=== PATIENT | male | born 1945 | race Caucasian/White ===

== ENCOUNTER 2017-08-17 15:27 | Inpatient (IN) | payer OTHER ==
[~2017-08-17] VITALS: Ht 175.3 cm; Wt 112.6 kg
--- NOTE | ~2017-08-17 | HC ---
[facility] [place] [address] CONSULTATION Name: REVA MOHAMUD Room #: [facility]- ADM IN M.R.#: [id number] Admission: 08/19/17 Attend Phys: Mayte Braxton MD, Discharge: Date of : 45 Report #: [id number] THIS REPORT FOR: //name// CC: FAM unknown Mayte Braxton REASON FOR CONSULTATION: I was asked to evaluate concerning sepsis post-abdominal wall reconstruction. HISTORY OF PRESENT ILLNESS: The patient is a 72-year-old with underlying history of diabetes, obesity, hypertension, recurrent ventral hernia who underwent a complex abdominal surgery on 08/19/2017. He underwent extensive lysis of adhesions, debridement of ischemic abdominal wall fascia and hernia sac with explantation of synthetic mesh fragments and permanent suture. Complex wall reconstruction with open repair of multiple incarcerated recurrent incisional ventral hernias with mesh with bilateral component separation of the abdominal wall and adjacent tissue transfer closure of the anterior abdominal wall tissues. Postoperatively, he developed respiratory failure and is on BiPAP. He has had no fever or chills. NG tube remains in place. Urine output has been fair, now about 40 mL an hour. I gave Lasix initially and now is receiving some fluid resuscitation. His pain has been under fair control. He does have an epidural pain pump, this currently is turned off. He has had no substernal chest pain or pleuritic chest pain. He has been seen by family practice and Pulmonary Medicine. He is now in the Intensive Care Unit. ALLERGIES: None known. MEDICATIONS: As noted on his SEP. He has been given cefazolin at the time of surgery, then ceftriaxone, Levaquin, now vancomycin, Levaquin and Zosyn. PAST MEDICAL HISTORY: Ventral hernia repair, diabetes, hypertension, obesity, hyperlipidemia. FAMILY HISTORY: Noncontributory. SOCIAL HISTORY: Past smoker, no significant alcohol intake. REVIEW OF SYSTEMS: As noted above with no rash. He has a right upper extremity PICC in place, NG tube in place. Indwelling Oglesby catheter. PHYSICAL EXAMINATION: VITAL SIGNS: Temperature is 99.9, blood pressure 102/78, pulse 92,-50% BiPAP. GENERAL: He was alert and cooperative. Right upper extremity PICC was unremarkable. He had an epidural catheter in place. LUNGS: Decreased breath sounds bilaterally, no consolidation. HEART: Regular, without murmur. ABDOMEN: Distended. Midline incisional VAC in place. Two AUREA drains in the [address] [address] CONSULTATION Name: REVA MOHAMUD Room #: 245-P ADM IN .R.#: [id number] Admission: 08/19/17 Attend Phys: Mayte Braxton MD, Discharge: Date of : 45 Report #: [id number] lower abdomen with serosanguineous output. Diffusely tender across his abdomen. Indwelling Oglesby catheter. External genitalia, otherwise unremarkable. EXTREMITIES: Unremarkable. LABORATORY STUDIES: Sodium 139, potassium 4.1, bicarbonate 24, creatinine 2.2. Lactate 2.1. Procalcitonin 18. Liver function test normal. Hemoglobin 13.7, platelet count 210,000, white count 15.2. Urinalysis, few wbc's, moderate bacteria and yeast. Blood cultures, urine culture pending. Echocardiogram: EF 60-65%. Chest x-ray, vascular congestion. Ultrasound of lower extremities negative for DVT. IMPRESSION AND PLAN: Postoperative day #1 from extensive abdominal wall surgical repair for ventral hernia with now respiratory failure and possible sepsis. He has evidence of leukocytosis, elevated procalcitonin, acute renal failure. Source of his sepsis likely combination of abdominal and respiratory issues. We will await blood cultures and urine culture. Monitor his AUREA drain output and abdominal wall incision. We will give back some fluid as necessary to keep his urine output. We will check CVP and remain in the Intensive Care Unit with broad-spectrum antibiotic coverage. <ELECTRONICALLY SIGNED> By: Michael Corrales MD 08/23/17 0900 2132 2337 Michael Corrales MD /nt
--- NOTE | ~2017-08-17 | EKG ---
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 : 1945 Requested By: Mayte Braxton Order Number: [id number] MD: Mason Linn Measurements Intervals [place] Rate: 58 P: 43 IA: 148 QRS: -56 QRSD: 98 T: -71 QT: 492 QTc: 484 Interpretive Statements Sinus rhythm Probable left atrial enlargement Left anterior fascicular block Early R-wave progression Abnormal T, consider ischemia No previous ECG available for comparison Electronically Signed On 08-19-2017 8:43:35 VP PATIENT by Mason Linn [email or web address] <ELECTRONICALLY SIGNED> By: Mason Linn MD, [facility] 08/19/17 0843 0632 0632 Mason Linn MD, [facility] /EPI
--- NOTE | ~2017-08-17 | 2DMMODE ---
[facility] [address] [place] [address] 2 D/M-MODE ECHOCARDIOGRAM Name: REVA MOHAMUD Room #: 245-P ADM IN M.R.#: [id number] Admission: 08/19/17 Attend Phys: Mayte Braxton, Discharge: Date of : 45 Date of Service: 08/20/17 [facility] Report #: [id number] THIS REPORT FOR: //name// APPROVED REPORT Study performed: 08/20/2017 08:07:13 EXAM: Comprehensive 2D, Doppler, and color-flow Echocardiogram Patient Location: ICU Room #: formerly [facility] Status: routine BSA: 2.28 HR: 90 bpm BP: 183/108 mmHg Other Information Study Quality: Adequate Indications Diabetes Dyspnea Hypertension/HDD 2D Dimensions LVEF(%): 73.44 (>50%) IVSd: 13.99 (7-11mm) LVOT Diam: 22.95 (18-24mm) LVDd: 42.67 mm PWd: 14.54 (7-11mm) Ascending Ao: 33.71 (22-36mm) LVDs: 24.71 (25-40mm) Aortic Root: 34.10 mm Boyle's LVEF: 73.44 % Aortic Valve AoV Peak Gavin.: 1.08 m/s AO Peak Gr.: 4.64 mmHg LVOT Max P.09 mmHg LVOT Max V: 1.01 m/s KHALIDA Vmax: 3.88 cm2 Mitral Valve E/A Ratio: 0.4 MV Decel. Time: 339.52 ms MV E Max Gavin.: 0.41 m/s MV A Gavin.: 0.99 m/s MV PHT: 98.46 ms IVRT: 124.57 ms [facility] [address] [place] [address] 2 D/M-MODE ECHOCARDIOGRAM Name: REVA MOHAMUD Room #: 245-P [facility] IN ..#: [id number] Admission: 08/19/17 Attend Phys: Mayte Braxton, Discharge: Date of : 45 Date of Service: 08/20/17 [facility] Report #: [id number] Pulmonary Valve PV Peak Gavin.: 0.84 m/s PV Peak Gr.: 2.85 mmHg Pulmonary Vein P Vein S: 0.52 m/s P Vein A: 0.31 m/s P Vein D: 0.30 m/s P Vein A Dur.: 106.1 msec P Vein S/D Ratio: 1.73 Left Ventricle The left ventricle is normal size. Mild concentric left ventricular hypertrophy. The left ventricular systolic function is normal. The left ventricular ejection fraction is within the normal range. LVEF is 60-65%. Grade I - abnormal relaxation pattern. Right Ventricle The right ventricle is normal size. The right ventricular systolic function is normal. Atria The left atrium size is normal. The right atrium size is normal. Aortic Valve The aortic valve is normal in structure. No aortic regurgitation is present. There is no aortic valvular stenosis. Mitral Valve The mitral valve is normal in structure. There is no mitral valve regurgitation noted. No evidence of mitral valve stenosis. Tricuspid Valve The tricuspid valve is normal in structure. There is no tricuspid valve regurgitation noted. Pulmonic Valve The pulmonary valve is normal in structure. There is no pulmonic valvular regurgitation. Great Vessels The aortic root is normal in size. IVC is not well visualized. Pericardium Trace pericardial effusion. [facility] [address] [address] 2 D/M-MODE ECHOCARDIOGRAM Name: REVA MOHAMUD Room #: 245-P ADM IN M.R.#: [id number] Admission: 08/19/17 Attend Phys: Mayte Braxton, Discharge: Date of : 45 Date of Service: 08/20/17 [facility] Report #: [id number] <Conclusion> The left ventricle is normal size. Mild concentric left ventricular hypertrophy. LVEF is 60-65%. Grade I - abnormal relaxation pattern. The right ventricle is normal size. The left atrium size is normal. The aortic valve is normal in structure. There is no mitral valve regurgitation noted. There is no tricuspid valve regurgitation noted. The aortic root is normal in size. Trace pericardial effusion. <ELECTRONICALLY SIGNED> By: Stephen Sinclair MD, FACC 08/20/17 1038 1038 1038 Stephen Sinclair MD, FAC /INF
--- NOTE | ~2017-08-17 | S ---
[facility] [place] [address] SURGICAL PATH RPT PROCEDURE Name: EFE MOHAMUD Room #: 245-P ADM IN M.R.#: [id number] Admission: 08/19/17 Date of : 45 Discharge: Report #: [id number] Path Case #: [id number] PATHOLOGY REPORT COLLECTION DATE: 08/19/2017 RECEIVED DATE: 08/19/2017 SUBMITTING PHYS: Dr. Mayte Braxton OTHER PHYS: Dr. Neri Hauser SPECIMEN(S) RECEIVED: A.Abdominal wall with MESH B.Hernia sac C.Skin and hernia sac * * * * * * * * * * * * FINAL DIAGNOSIS: A. Fibroadipose tissue, abdominal wall with mesh, removal: - 6.5 cm mesh along with plastic sutures (gross exam only). - Fragments of fibroadipose tissue with congestion and reactive changes. B. Hernia sac, repair: - Moderate chronic inflammation along with congestion, consistent with hernia sac. C. Skin and hernia sac, repair: - Skin with reactive changes. - Underlying fibrovascular connective tissue with dense chronic inflammation as well as congestion. (IUV:mgr; 08/20/2017) PATHOLOGIST: Theresa Buchanan M.D. REPORT ELECTRONICALLY SIGNED BY: Theresa Buchanan M.D. DATE/TIME: 08/20/2017 14:15 * * * * * * * * * * * * GROSS PATHOLOGY: A. Received in formalin labeled "Efe Mohamud, abdominal wall with mesh" is a 7.2 x 5.0 x 0.5 cm portion of bradley-yellow fibrotic soft tissue, which has an embedded portion of firm bradley-white surgical mesh. The portion of mesh measures 6.5 x 5.0 x 0.3 cm, and has multiple embedded blue plastic sutures. A gross photograph is taken. [employer] sections of the soft tissue are submitted in cassette A1. B. Received in formalin labeled "Efe Mohamud, hernia sac" is a 13.5 x 8.0 x 2.1 cm aggregate of pink-red membranous portions of soft tissue. Multiple embedded green sutures are identified within the specimen. No other abnormalities are identified. A field representative/health education [address] [address] SURGICAL PATH RPT PROCEDURE Name: EFE MOHAMUD Room #: 245-P ADM IN M.R.#: [id number] Admission: 08/19/17 Date of : 45 Discharge: Report #: [id number] Path Case #: [id number] section is submitted in cassette B1. C. Received in formalin labeled "Efe Mohamud, skin and hernia sac" is a 23.5 x 8.3 x 0.5 cm portion of dark brown skin, which has a well-healed scar measuring 17.8 x 2.2 cm. There is a bulging area within the scar, consistent with a hernia sac, which measures 6.5 x 4.5 x 4.0 cm. On the deep surface of the skin, the hernia sac has a pink-bradley membranous internal surface. A second hernia sac is identified within the soft tissue, which measures 8.5 x 6.5 x 5.4 cm. The remainder of the deep soft tissue is bradley-yellow and lobulated, with a pink-bradley membranous ragged deep surface. [employer] sections of the skin scar, hernia skin, and separate are hernia sac are submitted in cassette C1. ([facility]; 08/19/2017) CLINICAL HISTORY: Recurrent ventral hernia. INITIAL CPT CODE(S): A; 70145 B; 66094 C; 77239 Professional services performed by moziy at [facility] [address], [place] [address] Technical services performed by moziy at [address] [place] [address], [address], [place] [address]. [facility] [address] [place] [address] PHONE: [phone] DIRECTOR: Bladimir Vidales M.D. * * * END OF REPORT * * *
--- NOTE | ~2017-08-17 | O ---
[facility] [place] [address] OPERATIVE REPORT Name: ONEIDAREVA Room #: 363-P ADM IN M.R.#: [id number] Admission: 08/19/17 Attend Phys: Mayte Braxton MD, Discharge: Date of : 45 Report #: [id number] THIS REPORT FOR: //name// CC: FAM unknown Mayte Braxton DATE OF SERVICE: 08/19/2017 PREOPERATIVE DIAGNOSES: 1. Multiple incarcerated recurrent incisional ventral hernias. 2. Loss of abdominal domain. 3. Morbid obesity with a BMI of 36.51. 4. Diabetes mellitus. 5. Hypertension. 6. Hyperlipidemia. 7. Suspected intra-abdominal adhesions. 8. A large amount of synthetic foreign body and displaced mesh material. 9. Ischemic abdominal wall fascia and hernia sac. POSTOPERATIVE DIAGNOSES: 1. Multiple incarcerated recurrent incisional ventral hernias. 2. Loss of abdominal domain. 3. Morbid obesity with a BMI of 36.51. 4. Diabetes mellitus. 5. Hypertension. 6. Hyperlipidemia. 7. Dense and significant intra-abdominal adhesions. 8. A large amount of synthetic foreign body and displaced mesh material. 9. Ischemic abdominal wall fascia and hernia sac. PROCEDURES PERFORMED: 1. Exploratory laparotomy. 2. Extensive lysis of adhesions lasting 135 minutes. 3. Debridement of ischemic abdominal wall fascia and hernia sac with explantation of synthetic mesh fragments and permanent suture material. 4. Complex abdominal wall reconstruction with open repair of multiple incarcerated recurrent incisional ventral hernias with mesh. 5. Bilateral component separation of the abdominal wall, utilizing the transversus abdominis release. 6. Adjacent tissue transfer closure of the anterior abdominal wall tissues. 7. Skin reduction surgery. 8. Topical wound VAC placement. 9. This is a modifier 22 procedure for extreme difficulty of procedure secondary to greater than 2-hour lysis of adhesions in this morbidly obese patient, which required complex abdominal wall closure technique and pushed total time of the operation to nearly 5 hours as opposed to the usual 60-minute [address] [address] OPERATIVE REPORT Name: REVA MOHAMUD Room #: 363 ADM IN ..#: [id number] Admission: 08/19/17 Attend Phys: Mayte Braxton MD, Discharge: Date of : 45 Report #: [id number] open ventral hernia repair. SURGEON: Mayte Braxton M.D. INSTRUCTIONAL SPECIALIST: Neri Hauser M.D. ANESTHESIA: General endotracheal anesthesia with an epidural. ESTIMATED BLOOD LOSS: Minimal (less than 50 mL). COMPLICATIONS: None appreciated. SPECIMENS: Necrotic abdominal wall tissue and fascia with hernia sac and skin to pathology. INDICATIONS: The patient is a 72-year-old morbidly obese -[place] male with the above-mentioned comorbid conditions who presents with a large recurrent incisional ventral hernia containing numerous loops of small bowel and omentum. The patient underwent an abdominal exploration with hernia repair at [facility] approximately 3 years ago, but has had recurrence of his hernia with progressive enlargement and difficulty managing his hernia with increasing discomfort. After obtaining medical clearance from his physicians at the [facility], we are now proceeding to the operating room for definitive surgical management. DESCRIPTION OF PROCEDURE: After explaining the risks, benefits and alternatives of the procedure with the patient in detail in the preoperative holding area and obtaining written consent, the patient was brought to the operating room and placed supine on the operating room table. After conducting a thorough timeout procedure verifying correct patient and procedure, the patient was given general endotracheal anesthesia. Once adequate anesthesia was obtained, SCDs were hooked up to the patient's pneumatic compression device and he was given a preoperative dose of antibiotics in line with the SCIP protocol. The patient's abdomen was now prepped and draped in standard surgical sterile fashion. A #10-bladed scalpel was now used to create a longitudinal midline wound in an elliptical fashion around his prior incision site that showed dehiscence and scalloping of the skin. Electrocautery was used to carry this down through skin and subcutaneous tissues to ensure hemostasis. We entered into the abdomen and the superior most aspect of the abdominal domain and I was able to easily place a finger in the abdomen to control the incision along its length. We were able to open the longitudinal midline wound with some difficulty secondary to marked adhesions and numerous incarcerated incisional ventral hernias in a Palauan cheese fashion all along the longitudinal midline wound. Ultimately, once we had opened the entire fascia, which was done using tedious dissection with a combination of electrocautery and Metzenbaum scissors, we were able to fully evaluate the abdominal domain. We now proceeded to continue taking down [address] [address] OPERATIVE REPORT Name: REVA MOHAMUD Room #: 363-P [facility] IN M.R.#: [id number] Admission: 08/19/17 Attend Phys: Mayte Braxton MD, Discharge: Date of : 45 Report #: [id number] adhesions throughout the abdominal domain including freeing numerous loops of bowel as well as omentum from the posterior aspect of the anterior abdominal wall and taking down adhesions that were interloop in fashion. Ultimately, Once all adhesions were taken down, we ran the small bowel from the ligament of Treitz distally and then evaluated the colon in its entirety. There was no evidence of serosal defects, enterotomies or any other injury identified. The patient's appendix was noninflamed whatsoever. We confirmed placement of the NG tube in appropriate position within the gastric lumen and turned our attention to reconstructing the abdominal wall. The patient had obvious ischemic tissue of the abdominal wall fascia with numerous synthetic sutures and prior placed synthetic mesh that had fragmented. All synthetic material was explanted and fascia was debrided back to healthy vascularized fascia and what was resected was passed off the field as specimen. We now placed Simon clamps on the fascia and attempted to medialize them and unfortunately had a 2 cm gap down the midline. We therefore necessitated bilateral component separation for definitive closure. Fascia was grasped with Simon clamps and elevated and I proceeded to score the peritoneum approximately 0.5 cm lateral to the midline fascial wound. This allowed me into the transversus abdominis space and I proceeded to transect the transversus abdominis in craniocaudal fashion as possible. This was done on both sides in similar fashion and this bilateral component separation of the transversus abdominis muscle allowed significant release and easy medialization of the tissues down the midline. I now proceeded to close the posterior layer using loop #1 PDS suture in standard running fashion from inferior to superior aspects where it was tied down in subxiphoid location. I now selected a piece of Prolene mesh that measured a 30 x 30 cm in dimension. This was tailored to fit in the retrorectus space from the component separation and was appropriately placed into that space. This was anchored into position using numerous sutures of 0 PDS as well as 30 mL of Tisseel. I then placed two 19-Nepali round Nishant-Her drains, one in the left lower quadrant, one in the right lower quadrant, both crossed over the low midline and ran up the gutters on each side. These were anchored to the skin using 2-0 nylon in standard fashion. I now proceeded to close the anterior rectus fascial defect using another looped #1 PDS suture in standard running fashion. Now that we had definitive closure of the abdominal wall with excellent overlap outside the hernia defects in question, we turned our attention to closure of the skin and soft tissues. The patient had such a longstanding history of hernia formation, skin and thinned out considerably. The skin was resected in standard fashion to make the abdominal wall contour smooth. This was passed off the field as specimen. As the patient's subcutaneous tissue was devoid of significant tissue down the midline from the longstanding herniation, I did perform an adjacent tissue transfer closure of the abdominal wall. The skin flaps were elevated and I created counter incisions internally to allow medial rotation of vascularized pedicles of fat and Diego fascia. This was anchored down the midline using numerous sutures of 3-0 PDS in standard inverted interrupted fashion. This gave us excellent amounts of vascularized tissue overlying the fascial repair. Skin was now approximated and closed with skin roseanne down the midline. I then [address] [address] OPERATIVE REPORT Name: REVA MOHAMUD Room #: 363-P ADM IN M.R.#: [id number] Admission: 08/19/17 Attend Phys: Mayte Braxton MD, Discharge: Date of : 45 Report #: [id number] placed topical wound VAC device (KESHA) overlying the longitudinal midline wound. At the end of the lengthy procedure, all instrument, needle and sponge counts were correct. The patient tolerated the procedure without incident, was awakened in the operating room and transitioned to the recovery room in stable condition with no apparent complications. <ELECTRONICALLY SIGNED> By: Mayte Braxton MD, FACS 08/30/17 0758 2326 0112 Mayte Braxton MD, FACS /nt
--- NOTE | ~2017-08-17 | EKG ---
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: [place]os ARENAS : 1945 Requested By: Luiz Crump Order Number: [id number] MD: Mason Linn Measurements Intervals [place] Rate: 103 P: 41 [place]: 162 QRS: -75 QRSD: 89 T: 51 QT: 372 QTc: 487 Interpretive Statements Sinus tachycardia Left anterior fascicular block Abnormal R-wave progression, late transition Borderline prolonged QT interval Compared to ECG 08/19/2017 06:32:30 T-wave abnormality no longer present Electronically Signed On 08-20-2017 7:48:14 ADVISOR CONSULTANT by Mason Linn [email or web address] <ELECTRONICALLY SIGNED> By: Mason Linn MD, [facility] 08/20/17 0748 1721 1721 Mason Linn MD, [facility] /EPI
--- NOTE | ~2017-08-17 | EKG ---
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: MICH : 1945 Requested By: Hanane Mcleod Order Number: [id number] MD: Mason Linn Measurements Intervals [place] Rate: 86 P: 41 FL: 145 QRS: -59 QRSD: 94 T: 127 QT: 422 QTc: 505 Interpretive Statements Sinus rhythm Left anterior fascicular block Early R-wave progression Abnormal T, consider ischemia, lateral leads Prolonged QT interval Baseline wander in lead(s) V3 Compared to ECG 08/19/2017 06:32:30 Prolonged QT interval now present T-wave abnormality more pronounced Electronically Signed On 08-20-2017 7:53:01 SATELLITE DISH REPAIRER by Mason Linn [email or web address] <ELECTRONICALLY SIGNED> By: Mason Linn MD, FAC 08/20/17 0753 0625 0625 Mason Linn MD, FAC /EPI
--- NOTE | ~2017-08-17 | EKG ---
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: [employer] ARENAS : 1945 Requested By: Hanane Mcleod Order Number: [id number] MD: Mason Linn Measurements Intervals [place] Rate: 116 P: 32 GA: 144 QRS: -61 QRSD: 88 T: 67 QT: 356 QTc: 495 Interpretive Statements Sinus tachycardia Left anterior fascicular block Abnormal R-wave progression, early transition Borderline prolonged QT interval Compared to ECG 08/20/2017 06:25:45 Heart rate is increased Anterolateral T wave abnormality less prominent Electronically Signed On 08-22-2017 15:19:03 RELEASE OF INFORMATION SPECIALIST by aMson Linn [email or web address] <ELECTRONICALLY SIGNED> By: Mason Linn MD, [facility] 08/22/17 1519 1619 1619 Mason Linn MD, [facility] /EPI
[~2017-08-17 15:27] MED LIST: ASPIR 8181 MG PO; ATENOLOL 50MG T50 M1 PO; LEVEMIR SUBQ; LISINOPRIL20 MG PO; METFORMIN HCL500 MG PO; MIRALAX17 GM PO; NORVASC10 MG PO; NOVOLOG FL100 UNIT/M SUBQ; ONGLYZA5 MG PO; SENNA8.6 MG PO; ZOCOR40 MG PO
[2017-08-19] VITALS (26 sets, daily range): BP systolic 116–159; BP diastolic 80–109
[2017-08-19 16:49] LABS: BE(vivo) -7.2 mmol/L (-2 to +3); PCO2 35.7 mmHg (35.0-45.0); PO2 56.1 mmHg (80.0-100.0); sO2 87.2 % (92.0-98.0)
[2017-08-19 17:15] LABS: HEMATOCRIT 45.9 % (42.0-52.0); HEMOGLOBIN 14.9 gm/dL (14.0-18.0); MCH 28.6 pg (26.0-34.0); MCHC 32.4 g/dL (28.0-37.0); MCV 88.2 fL (80.0-100.0); RBC 5.2 mil/uL (4.50-6.00); RDW 17.2 % (10.5-14.5); WBC 15.9 thou/uL (4.0-11.0)
[2017-08-19 17:23] LABS: CALCIUM 7.6 mg/dL (8.5-10.1); CREATININE 1.5 mg/dL (0.7-1.3); POTASSIUM 5.4 mmol/L (3.5-5.1)
[2017-08-19 17:28] LABS: ALBUMIN 3.3 g/dL (3.4-5.0); TOTAL BILIRUBIN 0.9 mg/dL (<0.1-1.0); TOTAL PROTEIN 6.4 g/dL (6.4-8.2)
[2017-08-19 17:41] LABS: PROTIME 10.7 Seconds (9.3-11.4)
[2017-08-19 17:43] LABS: APTT 22.6 Seconds (24.5-32.8)
[2017-08-19 19:42] LABS: BE(vivo) -6.2 mmol/L (-2 to +3); HCO3 17.4 mmol/L (22.0-26.0); PCO2 29.8 mmHg (35.0-45.0); PO2 91.2 mmHg (80.0-100.0); pH 7.385 (7.360-7.450)
[2017-08-20] VITALS (77 sets, daily range): BP systolic 85–207; BP diastolic 55–125
[2017-08-20 04:48] LABS: HEMATOCRIT 40.8 % (42.0-52.0); HEMOGLOBIN 13.5 gm/dL (14.0-18.0); MCH 29.2 pg (26.0-34.0); MCHC 33.1 g/dL (28.0-37.0); MCV 88.1 fL (80.0-100.0); RBC 4.63 mil/uL (4.50-6.00); RDW 17.5 % (10.5-14.5)
[2017-08-20 05:02] LABS: ALBUMIN 2.7 g/dL (3.4-5.0); ANION GAP 11 mmol/L (7-16); BUN 18 mg/dL (7-18); CALCIUM 7.2 mg/dL (8.5-10.1); CHLORIDE 105 mmol/L (98-107); CO2 22 mmol/L (21-32); CREATININE 1.8 mg/dL (0.7-1.3); GLUCOSE 345 mg/dL (74-106); SGOT 21 U/L (15-37); SGPT 26 U/L (30-65); SODIUM 138 mmol/L (136-145); TOTAL BILIRUBIN 0.6 mg/dL (<0.1-1.0); TOTAL PROTEIN 5.7 g/dL (6.4-8.2); TROPONIN-I < 0.04 ng/mL (<0.06)
[2017-08-20 05:26] LABS: POTASSIUM 4.4 mmol/L (3.5-5.1)
[2017-08-20 05:29] LABS: HCO3 20.1 mmol/L (22.0-26.0); PCO2 33.9 mmHg (35.0-45.0); PO2 89.9 mmHg (80.0-100.0); pH 7.391 (7.360-7.450); sO2 96.9 % (92.0-98.0)
[2017-08-20 15:54] LABS: ABSOLUTE NEUTROPHILS 11.6 thou/uL (1.4-8.2); BASOPHILS 0.4 % (0.0-2.0); EOSINOPHILS 0.6 % (0.0-3.0); HEMATOCRIT 41.8 % (42.0-52.0); HEMOGLOBIN 13.7 gm/dL (14.0-18.0); LYMPHOCYTES 16.2 % (24.0-44.0); MCHC 32.8 g/dL (28.0-37.0); MCV 88.4 fL (80.0-100.0); MONOCYTES 6.6 % (1.0-8.0); PLATELET COUNT 210 thou/uL (150-400); POLYS 76.2 % (36.0-66.0); RBC 4.72 mil/uL (4.50-6.00); RDW 17.2 % (10.5-14.5); WBC 15.2 thou/uL (4.0-11.0)
[2017-08-20 15:55] LABS: HCO3 17.2 mmol/L (22.0-26.0); PCO2 47.1 mmHg (35.0-45.0); PO2 81.6 mmHg (80.0-100.0); pH 7.181 (7.360-7.450); sO2 93.1 % (92.0-98.0)
[2017-08-20 16:20] LABS: CALCIUM 7.7 mg/dL (8.5-10.1); CREATININE 2.3 mg/dL (0.7-1.3); POTASSIUM 4.6 mmol/L (3.5-5.1)
[2017-08-20 16:26] LABS: ALBUMIN 3.1 g/dL (3.4-5.0); TOTAL BILIRUBIN 0.5 mg/dL (<0.1-1.0); TOTAL PROTEIN 6.7 g/dL (6.4-8.2)
[2017-08-20 16:53] LABS: APTT 27.7 Seconds (24.5-32.8); FIBRINOGEN 492.8 mg/dL (210-360); INR 1.2; PROTIME 12.1 Seconds (9.3-11.4)
[2017-08-20 17:26] LABS: BE(vivo) -4.3 mmol/L (-2 to +3); HCO3 20.1 mmol/L (22.0-26.0); PCO2 34.7 mmHg (35.0-45.0); PO2 68.1 mmHg (80.0-100.0); sO2 93.5 % (92.0-98.0)
[2017-08-20 18:02] LABS: URINE BLOOD 3+ (Negative); URINE CLARITY SL CLOUDY; URINE COLOR YELLOW; URINE GLUCOSE-RANDOM* NEGATIVE (Negative); URINE KETONES NEGATIVE (Negative); URINE NITRITE-REFLEX NEGATIVE (Negative); URINE PROTEIN (DIPSTICK) 2+ (Negative); URINE SPECIFIC GRAVITY >= 1.030 (1.005-1.035); URINE UROBILINOGEN 0.2 E.U./dl (0.2-1.0)
[2017-08-20 18:08] LABS: ICTOTEST (BILI CONFIRMATORY) Negative (Negative); URINE BILIRUBIN NEGATIVE (Negative); URINE LEUKOCYTES-REFLEX TRACE (Negative)
[2017-08-20 18:15] LABS: CRYSTALS None Seen /LPF (None Seen); HYALINE CASTS 0-3 Few /LPF (None Seen); SQUAMOUS 0-3 Few /LPF (0-3); YEAST-REFLEX Present (None Seen)
[2017-08-20 18:16] LABS: URINE WBC-REFLEX 0-5 Rare /HPF (0-5)
[2017-08-20 20:42] LABS: CALCIUM 7.5 mg/dL (8.5-10.1); CREATININE 2.2 mg/dL (0.7-1.3); POTASSIUM 4.1 mmol/L (3.5-5.1)
[2017-08-21] VITALS (45 sets, daily range): BP systolic 108–172; BP diastolic 57–98
[2017-08-21 01:06] LABS: CALCIUM 7.6 mg/dL (8.5-10.1); CREATININE 1.9 mg/dL (0.7-1.3); POTASSIUM 3.8 mmol/L (3.5-5.1)
[2017-08-21 05:23] LABS: PCO2 34.4 mmHg (35.0-45.0); PO2 81.5 mmHg (80.0-100.0); pH 7.404 (7.360-7.450); sO2 96.2 % (92.0-98.0)
[2017-08-21 06:07] LABS: ABSOLUTE NEUTROPHILS 6.5 thou/uL (1.4-8.2); BASOPHILS 0.1 % (0.0-2.0); EOSINOPHILS 3.2 % (0.0-3.0); HEMATOCRIT 34.6 % (42.0-52.0); LYMPHOCYTES 11.5 % (24.0-44.0); MCH 29.1 pg (26.0-34.0); MCV 88.2 fL (80.0-100.0); MONOCYTES 7.5 % (1.0-8.0); PLATELET COUNT 148 thou/uL (150-400); POLYS 77.7 % (36.0-66.0); RBC 3.92 mil/uL (4.50-6.00); WBC 8.4 thou/uL (4.0-11.0)
[2017-08-21 06:22] LABS: ALBUMIN 2.3 g/dL (3.4-5.0); CALCIUM 7.4 mg/dL (8.5-10.1); CREATININE 1.8 mg/dL (0.7-1.3); POTASSIUM 3.9 mmol/L (3.5-5.1); TOTAL BILIRUBIN 0.5 mg/dL (<0.1-1.0); TOTAL PROTEIN 5.4 g/dL (6.4-8.2)
[2017-08-21 06:23] LABS: HEMOGLOBIN 11.4 gm/dL (14.0-18.0)
[2017-08-22] VITALS (21 sets, daily range): BP systolic 115–223; BP diastolic 75–115
[2017-08-22 05:42] LABS: HEMATOCRIT 33.9 % (42.0-52.0); HEMOGLOBIN 11.2 gm/dL (14.0-18.0); MCV 87.8 fL (80.0-100.0); RBC 3.86 mil/uL (4.50-6.00); RDW 17.3 % (10.5-14.5); WBC 8.9 thou/uL (4.0-11.0)
[2017-08-22 05:51] LABS: CREATININE 1.4 mg/dL (0.7-1.3); POTASSIUM 3.6 mmol/L (3.5-5.1)
[2017-08-22 16:18] LABS: BE(vivo) -4.5 mmol/L (-2 to +3); HCO3 22.4 mmol/L (22.0-26.0); PCO2 48.4 mmHg (35.0-45.0); PO2 65.4 mmHg (80.0-100.0); pH 7.283 (7.360-7.450); sO2 90.3 % (92.0-98.0)
[2017-08-23] VITALS (25 sets, daily range): BP systolic 95–211; BP diastolic 58–105
[2017-08-23 04:12] LABS: CALCIUM 8.1 mg/dL (8.5-10.1); CREATININE 1.3 mg/dL (0.7-1.3); POTASSIUM 3.4 mmol/L (3.5-5.1)
[2017-08-23 04:17] LABS: ABSOLUTE NEUTROPHILS 6.3 thou/uL (1.4-8.2); BASOPHILS 0.4 % (0.0-2.0); EOSINOPHILS 3.5 % (0.0-3.0); HEMATOCRIT 32.5 % (42.0-52.0); LYMPHOCYTES 11.2 % (24.0-44.0); MCH 29.7 pg (26.0-34.0); MCHC 33.7 g/dL (28.0-37.0); MCV 88.1 fL (80.0-100.0); MONOCYTES 9.3 % (1.0-8.0); PLATELET COUNT 156 thou/uL (150-400); POLYS 75.6 % (36.0-66.0); RBC 3.69 mil/uL (4.50-6.00); RDW 17.1 % (10.5-14.5); WBC 8.4 thou/uL (4.0-11.0)
[2017-08-23 04:57] LABS: BE(vivo) -4.4 mmol/L (-2 to +3); HCO3 19.7 mmol/L (22.0-26.0); PCO2 33.1 mmHg (35.0-45.0); PO2 68.8 mmHg (80.0-100.0); pH 7.392 (7.360-7.450); sO2 93.9 % (92.0-98.0)
[2017-08-24] VITALS (29 sets, daily range): BP systolic 112–211; BP diastolic 67–104
[2017-08-24 05:11] LABS: ABSOLUTE NEUTROPHILS 3.7 thou/uL (1.4-8.2); BASOPHILS 0.3 % (0.0-2.0); HEMATOCRIT 30.4 % (42.0-52.0); HEMOGLOBIN 10.1 gm/dL (14.0-18.0); LYMPHOCYTES 15.1 % (24.0-44.0); MCH 29.4 pg (26.0-34.0); MCHC 33.4 g/dL (28.0-37.0); MCV 88.1 fL (80.0-100.0); MONOCYTES 8.6 % (1.0-8.0); PLATELET COUNT 143 thou/uL (150-400); RBC 3.44 mil/uL (4.50-6.00); RDW 16.9 % (10.5-14.5); WBC 5.4 thou/uL (4.0-11.0)
[2017-08-24 05:25] LABS: CREATININE 1.2 mg/dL (0.7-1.3); POTASSIUM 3.5 mmol/L (3.5-5.1)
[2017-08-25] VITALS (21 sets, daily range): BP systolic 102–193; BP diastolic 51–140
[2017-08-25 05:48] LABS: HEMATOCRIT 33.3 % (42.0-52.0); MCH 29.2 pg (26.0-34.0); MCHC 33.2 g/dL (28.0-37.0); RBC 3.79 mil/uL (4.50-6.00); RDW 17.1 % (10.5-14.5); WBC 6.7 thou/uL (4.0-11.0)
[2017-08-25 05:59] LABS: ALBUMIN 2.3 g/dL (3.4-5.0); CALCIUM 8.4 mg/dL (8.5-10.1); CREATININE 1.3 mg/dL (0.7-1.3)
[2017-08-25 06:11] LABS: PHOSPHORUS 2.4 mg/dL (2.5-4.9)
[2017-08-26] VITALS (41 sets, daily range): BP systolic 113–221; BP diastolic 65–122
[2017-08-26 05:05] LABS: HEMATOCRIT 35.2 % (42.0-52.0); HEMOGLOBIN 11.8 gm/dL (14.0-18.0); MCH 29.4 pg (26.0-34.0); MCHC 33.5 g/dL (28.0-37.0); MCV 87.6 fL (80.0-100.0); RBC 4.02 mil/uL (4.50-6.00); RDW 17.3 % (10.5-14.5); WBC 8.8 thou/uL (4.0-11.0)
[2017-08-26 05:23] LABS: CALCIUM 8.3 mg/dL (8.5-10.1); CREATININE 1.3 mg/dL (0.7-1.3); POTASSIUM 3.3 mmol/L (3.5-5.1)
[2017-08-27] VITALS (27 sets, daily range): BP systolic 130–208; BP diastolic 78–105
[2017-08-27 05:13] LABS: BE(vivo) 1.4 mmol/L (-2 to +3); HCO3 24.4 mmol/L (22.0-26.0); PCO2 33.5 mmHg (35.0-45.0); PO2 66.7 mmHg (80.0-100.0); pH 7.481 (7.360-7.450); sO2 94.6 % (92.0-98.0)
[2017-08-28] VITALS (17 sets, daily range): BP systolic 119–186; BP diastolic 72–96
[2017-08-28 05:19] LABS: BE(vivo) 5.4 mmol/L (-2 to +3); PCO2 34.8 mmHg (35.0-45.0); PO2 56.8 mmHg (80.0-100.0); pH 7.524 (7.360-7.450); sO2 92.5 % (92.0-98.0)
[2017-08-28 06:08] LABS: ABSOLUTE NEUTROPHILS 5.6 thou/uL (1.4-8.2); BASOPHILS 0.8 % (0.0-2.0); EOSINOPHILS 4.7 % (0.0-3.0); HEMATOCRIT 39.5 % (42.0-52.0); HEMOGLOBIN 12.9 gm/dL (14.0-18.0); LYMPHOCYTES 18.6 % (24.0-44.0); MCH 28.8 pg (26.0-34.0); MCHC 32.7 g/dL (28.0-37.0); MCV 88.3 fL (80.0-100.0); MONOCYTES 10.5 % (1.0-8.0); POLYS 65.4 % (36.0-66.0); RBC 4.47 mil/uL (4.50-6.00); RDW 17.7 % (10.5-14.5); WBC 8.5 thou/uL (4.0-11.0)
[2017-08-28 06:12] LABS: PLATELET COUNT 298 thou/uL (150-400)
[2017-08-28 06:23] LABS: ALBUMIN 2.6 g/dL (3.4-5.0); CALCIUM 8.4 mg/dL (8.5-10.1); CREATININE 1.2 mg/dL (0.7-1.3); MAGNESIUM 1.8 mg/dL (1.8-2.4); POTASSIUM 3.1 mmol/L (3.5-5.1); TOTAL BILIRUBIN 0.6 mg/dL (<0.1-1.0); TOTAL PROTEIN 6.4 g/dL (6.4-8.2)
[2017-08-29 00:36] LABS: MAGNESIUM 1.9 mg/dL (1.8-2.4); POTASSIUM 3.4 mmol/L (3.5-5.1)
[2017-08-29 04:15] VITALS: BP 153/89
[2017-08-29 07:31] VITALS: BP 166/91
[2017-08-29 15:34] VITALS: BP 162/86
[2017-08-29 20:38] VITALS: BP 175/89
[2017-08-30 04:15] VITALS: BP 159/95
[2017-08-30 07:49] VITALS: BP 158/83
[2017-08-30 13:30] VITALS: BP 158/83
[2017-08-30 15:35] VITALS: BP 156/89
[2017-08-30 19:44] VITALS: BP 145/83
[2017-08-31 03:51] VITALS: BP 155/90
[2017-08-31 07:03] VITALS: BP 156/81
[2017-08-31] MEDS ORDERED: AUGMENTIN 875-1 EACH PO (09:57)
[2017-08-31] MEDS ORDERED: LEVEMIR SUBQ (10:38)
[2017-08-31 11:21] VITALS: BP 44/83
[2017-08-31 15:45] VITALS: BP 152/77
[2017-08-31 16:01] VITALS: BP 158/83
== END 2017-08-31 17:57 | disposition home health service (06) | DRG 853 ==
LOC: OR 15:27 → EDSTATUS 15:28 → 4N 08-19 05:32 → TBA 08-19 05:32 → ICU 08-19 05:32 → PRE 08-19 09:03 → 4N 08-19 14:39 → ENTRNSPT 08-19 16:18 → 4N 08-19 16:25 → ICU 08-19 18:02 → 3W 08-28 17:49 → ENTRNSPT 08-31 17:48 → 3W 08-31 17:57
PROVIDERS: Family Medicine; Hospitalist; Internal Medicine Endocrinology, Diabetes & Metabolism; Internal Medicine Pulmonary Disease; Nurse Practitioner Acute Care; Surgery
PROC: 0WUF0JZ Supplement Abdominal Wall with Synthetic Substitute, Open Approach (ICD-10-PCS; principal; 2017-08-19)
PROC: 0JX80ZZ Transfer Abdomen Subcutaneous Tissue and Fascia, Open Approach (ICD-10-PCS; principal; 2017-08-19)
PROC: 0DNU0ZZ Release Omentum, Open Approach (ICD-10-PCS; principal; 2017-08-19)
PROC: 0JB80ZZ Excision of Abdomen Subcutaneous Tissue and Fascia, Open Approach (ICD-10-PCS; principal; 2017-08-19)
PROC: 5A09557 Assistance with Respiratory Ventilation, Greater than 96 Consecutive Hours, Continuous Positive Airway Pressure (ICD-10-PCS; 2017-08-19)
PROC: 05HB33Z Insertion of Infusion Device into Right Basilic Vein, Percutaneous Approach (ICD-10-PCS; 2017-08-20)
DX: A41.9 Sepsis, unspecified organism (principal); J96.01 Acute respiratory failure with hypoxia; G93.40 Encephalopathy, unspecified; J69.0 Pneumonitis due to inhalation of food and vomit; N17.9 Acute kidney failure, unspecified; K43.0 Incisional hernia with obstruction, without gangrene; K56.7 Ileus, unspecified; J98.11 Atelectasis; E66.01 Morbid (severe) obesity due to excess calories; E78.5 Hyperlipidemia, unspecified; I12.9 Hypertensive chronic kidney disease with stage 1 through stage 4 chronic kidney disease, or unspecified chronic kidney disease; N18.9 Chronic kidney disease, unspecified; E11.22 Type 2 diabetes mellitus with diabetic chronic kidney disease; R65.20 Severe sepsis without septic shock; T17.990A Other foreign object in respiratory tract, part unspecified in causing asphyxiation, initial encounter; X58.XXXA Exposure to other specified factors, initial encounter; Z87.891 Personal history of nicotine dependence; Z68.36 Body mass index [BMI] 36.0-36.9, adult; Y93.89 Activity, other specified; Y92.89 Other specified places as the place of occurrence of the external cause; Y99.8 Other external cause status
CPT/HCPCS: 10078; 10779; 27000; 50010; 50101; 50331; 50386; 50455; 50507; 51412; 51437; 56525; 56527; 56530; 57092; 62110; 62900; 65002; 65075; 70005